=== PATIENT | male | born 1940 | race Caucasian/White ===

== ENCOUNTER 2021-08-13 12:00 | Inpatient (IN) | payer MEDICARE ==
[2021-08-09 11:37] LABS: BASOPHILS % (AUTO) 0.9 % (0.0-5.0); EOSINOPHILS % (AUTO) 3.7 % (0.0-8.0); HEMATOCRIT 35.9 % (42-54); MEAN CORPUSCULAR HEMOGLOBIN 30.4 pg (27.0-33.0); MEAN CORPUSCULAR HGB CONC 33.1 g/dL (32.0-36.0); MEAN CORPUSCULAR VOLUME 91.6 fL (79-99); MONOCYTES % (AUTO) 6.4 % (3.0-13.0); NEUTROPHILS % (AUTO) 70.3 % (40.0-77.0); PLATELET COUNT (AUTO) 253 K/uL (130-400); RED BLOOD CELL COUNT(AUTO) 3.92 MIL/uL (4.50-6.20); RED CELL DISTRIBUTION WIDTH 13.4 % (11.0-15.5); WHITE BLOOD COUNT (AUTO) 9.2 K/uL (4.8-10.8)
[2021-08-09 11:39] LABS: APPEARANCE,URINE Clear (CLEAR); BILIRUBIN,URINE Negative (NEGATIVE); COLOR,URINE Yellow (YELLOW); GLUCOSE, URINE (UA) Negative (NEGATIVE); KETONES,URINE Negative (NEGATIVE); LEUKOCYTE ESTERASE ,URINE Moderate (NEGATIVE); NITRATE,URINE Negative (NEGATIVE); OCCULT BLOOD,URINE Moderate (NEGATIVE); PROTEIN,URINE Trace mg/dL (NEGATIVE); UROBILINOGEN,URINE 0.2 mg/dL (0.2-1.0)
[2021-08-09 11:49] LABS: POTASSIUM 4.6 mmol/L (3.5-5.1)
[2021-08-09 11:49] LABS: BACTERIA,URINE Rare /HPF (None Seen); RBC,URINE 0-1 /HPF (0-1); SQUAMOUS EPITHELIAL CELL,UR Rare /HPF (0-2)
[2021-08-09 11:53] LABS: INR 1.07 (0.85-1.15); PROTHROMBIN TIME 11.6 SEC (9.6-11.6)
[2021-08-09 11:55] LABS: PARTIAL THROMBOPLASTIN TIME 28.1 SEC (26.3-35.5)
[2021-08-12 14:20] VITALS: BP 174/67
[2021-08-13] VITALS (28 sets, daily range): BP systolic 89–163; BP diastolic 39–68
[~2021-08-13] VITALS: Ht 182.9 cm; Wt 100.1 kg
[2021-08-13] MEDS: LACTATED RINGERS 1000ML 1,000 ML IV SCH ×4 (06:00→16:33)
[~2021-08-13 12:00] MED LIST: DOCU-280 PO; FINA5TAB41 PO; FOCUS FACTOR PO; SIMV-46 PO; TAMS-1 PO
[2021-08-13] MEDS: CEFAZOLIN SODIUM 1 GM VIAL IVP SCH ×2 (12:50→13:50)
[2021-08-13] MEDS ORDERED: PROPOFOL 10 MG/ML 20ML VIAL IV ONE (13:35)
[2021-08-13] MEDS ORDERED: SUCCINYLCHOLINE 200MG/10ML SYR ONE (13:35)
[2021-08-13] MEDS ORDERED: LIDOCAINE PF 100MG/5ML (2%) SYRINGE 5ML ONE (13:36)
[2021-08-13] MEDS ORDERED: GLYCOPYRROLATE 1 MG/5 ML SYRINGE ONE (13:53)
[2021-08-13] MEDS ORDERED: NEOSTIGMINE 5MG/5ML SYR IV ONE (13:53)
[2021-08-13] MEDS ORDERED: EPHEDRINE SULFATE 50 MG/ML AMPULE ONE (13:55)
[2021-08-13] MEDS ORDERED: ROCURONIUM 10MG/1ML SYR 10 MG/ML ML ONE (13:56)
[2021-08-13] MEDS ORDERED: ZOSYN 3.375GM+NS 50ML 50 ML ONE (14:12)
[2021-08-13] MEDS ORDERED: FENTANYL CITRATE PF 50 MCG/1 ML 2ML VIAL ONE (14:15)
[2021-08-13] MEDS ORDERED: ALBUMIN (HUMAN) 5% 250 ML IV ONE (15:26)
[2021-08-13] MEDS ORDERED: AMINOCAPROIC ACID 5,000MG VIAL ONE ×3 (15:29→16:00)
[2021-08-13 15:51] LABS: HEMATOCRIT 31.1 % (42-54)
[2021-08-13 17:17] LABS: BASOPHILS % (AUTO) 0.1 % (0.0-5.0); EOSINOPHILS % (AUTO) 2.1 % (0.0-8.0); HEMATOCRIT 33.4 % (42-54); LYMPHOCYTES % (AUTO) 15.4 % (21.0-51.0); MEAN CORPUSCULAR HEMOGLOBIN 30.3 pg (27.0-33.0); MEAN CORPUSCULAR HGB CONC 32.9 g/dL (32.0-36.0); MONOCYTES % (AUTO) 1.8 % (3.0-13.0); PLATELET COUNT (AUTO) 218 K/uL (130-400); RED BLOOD CELL COUNT(AUTO) 3.63 MIL/uL (4.50-6.20); RED CELL DISTRIBUTION WIDTH 13.3 % (11.0-15.5); WHITE BLOOD COUNT (AUTO) 10.7 K/uL (4.8-10.8)
[2021-08-13 17:25] LABS: CREATININE 0.9 mg/dL (0.5-1.5); POTASSIUM 4.4 mmol/L (3.5-5.1)
[2021-08-13] MEDS ORDERED: FUROSEMIDE 40MG VIAL ONE (17:40)
[2021-08-13] MEDS ORDERED: ONDANSETRON 4MG INJ ONE (19:10)
[2021-08-13 22:15] LABS: HEMATOCRIT 32.8 % (42-54)
[2021-08-13] MEDS ORDERED: 0.9% NACL 500ML IV.SOLN 500 ML IV STA (22:40)
[2021-08-13] MEDS ORDERED: GUAIFENESIN-DM 200/20 MG 10 ML PO PRN (23:00)
[2021-08-13] MEDS ORDERED: NITROGLYCERIN 0.4 MG SL TAB SL PRN (23:00)
[2021-08-13] MEDS ORDERED: MAG/ALUM/SIMETH 30 ML UDCUP PO PRN (23:00)
[2021-08-13] MEDS ORDERED: ZOLPIDEM TARTRATE 5 MG TAB PO PRN (23:00)
[2021-08-13] MEDS ORDERED: ACETAMINOPHEN 325 MG TAB PO PRN ×2 (23:00)
[2021-08-13] MEDS ORDERED: ONDANSETRON 4MG INJ IV PRN (23:00)
[2021-08-13] MEDS ORDERED: HYDROCODONE/ACETAMINOPHEN 5/325 MG TAB PO PRN (23:00)
[2021-08-13] MEDS ORDERED: LACTULOSE 20 GM/30 ML UDCUP PO PRN (23:00)
[2021-08-13] MEDS: 0.9%NACL 1000ML 1,000 ML IV SCH (23:24)
[2021-08-13] MEDS ORDERED: MIDODRINE HCL 5 MG TABLET ONE (23:28)
[2021-08-13] MEDS ORDERED: POTASSIUM CHLORIDE 20MEQ/100ML 100 ML IV PRN (23:30)
[2021-08-13] MEDS ORDERED: DEXTROSE 50%-WATER 50 ML DISP.SYRIN IV PRN (23:30)
[2021-08-13] MEDS ORDERED: GLUCAGON 1MG KIT 1 MG ML IM PRN (23:30)
[2021-08-13] MEDS: CEFTRIAXONE 1G VIAL IVP SCH (23:40)
[2021-08-14] VITALS (25 sets, daily range): BP systolic 91–129; BP diastolic 40–62
[2021-08-14] MEDS ORDERED: 0.9%NACL 1000ML 1,000 ML IV ONE
[2021-08-14] MEDS ORDERED: LABETALOL 20MG SYG IV PRN (01:00)
[2021-08-14] MEDS ORDERED: ZOSYN 3.375GM+NS 50ML 50 ML ONE (03:20)
[2021-08-14] MEDS ORDERED: 0.9%NACL 50ML 50 ML IV ONE ×2 (03:20→20:05)
[2021-08-14] MEDS ORDERED: ACETAMINOPHEN WITH CODEINE 1 TAB TAB PO PRN ×2 (03:30)
[2021-08-14] MEDS ORDERED: ZOSYN 3.375GM+NS 50ML 50 ML IV SCH (03:30)
[2021-08-14] MEDS ORDERED: MEPERIDINE-PF 75 MG/ML SYG IVP PRN (03:30)
[2021-08-14 03:38] LABS: BASOPHILS % (AUTO) 0.1 % (0.0-5.0); EOSINOPHILS % (AUTO) 1.1 % (0.0-8.0); HEMATOCRIT 29.5 % (42-54); LYMPHOCYTES % (AUTO) 1.2 % (21.0-51.0); MEAN CORPUSCULAR HEMOGLOBIN 30.4 pg (27.0-33.0); MEAN CORPUSCULAR HGB CONC 34.6 g/dL (32.0-36.0); MEAN CORPUSCULAR VOLUME 87.8 fL (79-99); MONOCYTES % (AUTO) 3.3 % (3.0-13.0); NEUTROPHILS % (AUTO) 93.8 % (40.0-77.0); PLATELET COUNT (AUTO) 170 K/uL (130-400); RED BLOOD CELL COUNT(AUTO) 3.36 MIL/uL (4.50-6.20); RED CELL DISTRIBUTION WIDTH 13.5 % (11.0-15.5); WHITE BLOOD COUNT (AUTO) 14.9 K/uL (4.8-10.8)
[2021-08-14 03:47] LABS: HEMOGLOBIN A1C 5.5 % (4.0-6.0)
[2021-08-14 03:58] LABS: B-TYPE NATRIURETIC PEPTIDE 119 pg/mL (0-100)
[2021-08-14 04:16] LABS: ALANINE AMINOTRANSFERASE 15 U/L (12-78); ALBUMIN 2.9 g/dL (3.5-5.0); ASPARTATE AMINOTRANSFERASE 15 U/L (10-37); BILIRUBIN,TOTAL 0.7 mg/dL (0.2-1.0); CARBON DIOXIDE 26 mmol/L (21-32); CHLORIDE 99 mmol/L (101-111); CREATININE 1.1 mg/dL (0.5-1.5); GLOMERULAR FILTR. RATE CALC 68 mL/min (>60); GLUCOSE,RANDOM 125 mg/dL (70-105); POTASSIUM 3.8 mmol/L (3.5-5.1); SODIUM SERUM 132 mmol/L (136-145); THYROID STIMULATING HORMONE 0.75 uIU/mL (0.36-3.74); TOTAL PROTEIN, SERUM 5.6 g/dL (6.0-8.3); UREA NITROGEN, BLOOD 21 mg/dL (7-18)
[2021-08-14 04:24] LABS: LIPASE < 50 U/L (114-286)
[2021-08-14] MEDS: INSULIN HUMULIN R 100 UNIT/ML 3ML SQ SCH ×4 (05:31→20:52)
[2021-08-14] MEDS ORDERED: ALBUMIN (HUMAN) 25% 50 ML IV SCH (07:00)
[2021-08-14] MEDS: AMINOCAPROIC ACID IV SCH ×2 (08:44→23:22)
[2021-08-14] MEDS: OXYBUTYNIN 5 MG TAB.SR.24H PO SCH (08:44)
[2021-08-14] MEDS: [UNRECOGNIZED DRUG - OTHER] IV SCH ×2 (08:44→23:22)
[2021-08-14] MEDS: AMINOCAPROIC ACID 500MG TAB PO SCH ×3 (08:44→20:44)
[2021-08-14] MEDS: TAMSULOSIN HCL 0.4 MG CAP.ER.24H PO SCH ×2 (08:46→20:44)
[2021-08-14] MEDS: 0.9%NACL 1000ML 1,000 ML IV SCH ×2 (09:30→20:44)
[2021-08-14] MEDS: ZOSYN 3.375GM+NS 50ML 50 ML IV SCH ×2 (12:26→20:44)
[2021-08-14] MEDS ORDERED: FUROSEMIDE 40MG VIAL IV ONE (19:55)
[2021-08-14] MEDS: SIMVASTATIN 20 MG TABLET PO SCH (20:44)
[2021-08-14] MEDS: DOCUSATE SODIUM 100 MG CAP PO SCH (20:44)
[2021-08-14] MEDS ORDERED: MIDODRINE HCL 5 MG TABLET PO ONE (23:30)
[2021-08-15] VITALS (7 sets, daily range): BP systolic 113–148; BP diastolic 59–72
[2021-08-15] MEDS: CEFTRIAXONE 1G VIAL IVP SCH ×2 (00:12→23:40)
[2021-08-15] MEDS: 0.9%NACL 1000ML 1,000 ML IV SCH ×2 (00:42→18:48)
[2021-08-15] MEDS: ZOSYN 3.375GM+NS 50ML 50 ML IV SCH ×2 (03:50→12:26)
[2021-08-15 04:54] LABS: HEMATOCRIT 34.1 % (42-54); MEAN CORPUSCULAR HEMOGLOBIN 29.3 pg (27.0-33.0); MEAN CORPUSCULAR HGB CONC 33.7 g/dL (32.0-36.0); MEAN CORPUSCULAR VOLUME 86.8 fL (79-99); PLATELET COUNT (AUTO) 169 K/uL (130-400); RED BLOOD CELL COUNT(AUTO) 3.93 MIL/uL (4.50-6.20); RED CELL DISTRIBUTION WIDTH 13.9 % (11.0-15.5); WHITE BLOOD COUNT (AUTO) 15.8 K/uL (4.8-10.8)
[2021-08-15 05:08] LABS: ALBUMIN 2.8 g/dL (3.5-5.0); BILIRUBIN,TOTAL 0.7 mg/dL (0.2-1.0); TOTAL PROTEIN, SERUM 5.9 g/dL (6.0-8.3)
[2021-08-15] MEDS: POTASSIUM CHLORIDE 10% ELIXIR 20 MEQ/15 ML UDCUP PO PRN ×2 (05:21→23:40)
[2021-08-15] MEDS: INSULIN HUMULIN R 100 UNIT/ML 3ML SQ SCH ×4 (05:58→21:00)
[2021-08-15 06:04] LABS: BAND NEUTROPHILS % (MANUAL) 9 % (0-2); EOSINOPHILS % (MANUAL) 9 % (1-6); LYMPHOCYTES % (MANUAL) 1 % (22-44); MONOCYTES % (MANUAL) 3 % (2-9); REACTIVE LYMPHOCYTES 1 % (0-0); SEGMENTED NEUTROPHILS % 77 % (40-70)
[2021-08-15 06:05] LABS: MAN.DIFF COMMENT-IMPRESSION MANUAL DIFFERENTIAL; PLATELET MORPHOLOGY COMMENT ADEQUATE
[2021-08-15] MEDS: AMINOCAPROIC ACID 500MG TAB PO SCH ×3 (09:40→21:18)
[2021-08-15] MEDS: OXYBUTYNIN 5 MG TAB.SR.24H PO SCH (09:40)
[2021-08-15] MEDS: TAMSULOSIN HCL 0.4 MG CAP.ER.24H PO SCH ×2 (09:40→21:18)
[2021-08-15] MEDS: METOPROLOL TARTRATE 25 MG TAB PO SCH ×2 (09:41→21:20)
[2021-08-15] MEDS: KCL 20 MEQ ERTAB PO PRN (12:26)
[2021-08-15] MEDS: MEROPENEM 1 GM VIAL IVP SCH (18:48)
[2021-08-15] MEDS: DOCUSATE SODIUM 100 MG CAP PO SCH (21:00)
[2021-08-15] MEDS: SIMVASTATIN 20 MG TABLET PO SCH (21:19)
[2021-08-15] MEDS ORDERED: MAGNESIUM 2GM PREMIX 50ML 50 ML IV PRN (23:30)
[2021-08-15 23:47] LABS: MAGNESIUM 2.1 mg/dL (1.80-2.40); POTASSIUM 3.4 mmol/L (3.5-5.1)
[2021-08-16] MEDS: MEROPENEM 1 GM VIAL IVP SCH ×3 (01:56→18:02)
[2021-08-16] MEDS: KCL 20 MEQ ERTAB PO PRN (01:56)
[2021-08-16 03:49] VITALS: BP 136/66
[2021-08-16 04:40] LABS: HEMATOCRIT 34.2 % (42-54); MEAN CORPUSCULAR HEMOGLOBIN 29.7 pg (27.0-33.0); MEAN CORPUSCULAR HGB CONC 33.9 g/dL (32.0-36.0); MEAN CORPUSCULAR VOLUME 87.5 fL (79-99); RED BLOOD CELL COUNT(AUTO) 3.91 MIL/uL (4.50-6.20); RED CELL DISTRIBUTION WIDTH 13.9 % (11.0-15.5); WHITE BLOOD COUNT (AUTO) 12.5 K/uL (4.8-10.8)
[2021-08-16 05:18] LABS: CREATININE 0.9 mg/dL (0.5-1.5); POTASSIUM 3.8 mmol/L (3.5-5.1)
[2021-08-16] MEDS: INSULIN HUMULIN R 100 UNIT/ML 3ML SQ SCH ×4 (05:48→21:00)
[2021-08-16 08:00] VITALS: BP 151/78
[2021-08-16] MEDS: TAMSULOSIN HCL 0.4 MG CAP.ER.24H PO SCH ×2 (08:46→20:22)
[2021-08-16] MEDS: OXYBUTYNIN 5 MG TAB.SR.24H PO SCH (08:46)
[2021-08-16] MEDS: METOPROLOL TARTRATE 25 MG TAB PO SCH ×2 (08:46→20:22)
[2021-08-16] MEDS: AMINOCAPROIC ACID 500MG TAB PO SCH ×3 (09:08→20:21)
[2021-08-16 11:29] VITALS: BP 137/69
[2021-08-16] MEDS: 0.9%NACL 1000ML 1,000 ML IV SCH (15:46)
[2021-08-16 16:00] VITALS: BP 127/53
[2021-08-16 20:00] VITALS: BP 138/69
[2021-08-16] MEDS: SIMVASTATIN 20 MG TABLET PO SCH (20:21)
[2021-08-16] MEDS: DOCUSATE SODIUM 100 MG CAP PO SCH (20:28)
[2021-08-16] MEDS: CEFTRIAXONE 1G VIAL IVP SCH (23:16)
[2021-08-17] VITALS: BP 121/67
[2021-08-17] MEDS: MEROPENEM 1 GM VIAL IVP SCH ×2 (01:52→09:35)
[2021-08-17 03:35] VITALS: BP 149/71
[2021-08-17] MEDS: INSULIN HUMULIN R 100 UNIT/ML 3ML SQ SCH ×2 (05:44→11:30)
[2021-08-17 06:09] LABS: HEMATOCRIT 34.4 % (42-54); MEAN CORPUSCULAR HEMOGLOBIN 29.7 pg (27.0-33.0); MEAN CORPUSCULAR VOLUME 87.3 fL (79-99); PLATELET COUNT (AUTO) 169 K/uL (130-400); RED BLOOD CELL COUNT(AUTO) 3.94 MIL/uL (4.50-6.20); RED CELL DISTRIBUTION WIDTH 13.8 % (11.0-15.5); WHITE BLOOD COUNT (AUTO) 11.2 K/uL (4.8-10.8)
[2021-08-17 06:25] LABS: CREATININE 0.7 mg/dL (0.5-1.5); POTASSIUM 3.6 mmol/L (3.5-5.1)
[2021-08-17] MEDS: KCL 20 MEQ ERTAB PO PRN (06:39)
[2021-08-17 07:24] LABS: EOSINOPHILS % (MANUAL) 16 % (1-6); LYMPHOCYTES % (MANUAL) 23 % (22-44); MAN.DIFF COMMENT-IMPRESSION MANUAL DIFFERENTIAL; MONOCYTES % (MANUAL) 4 % (2-9); PLATELET MORPHOLOGY COMMENT ADEQUATE; REACTIVE LYMPHOCYTES 1 % (0-0); SEGMENTED NEUTROPHILS % 56 % (40-70)
[2021-08-17 07:54] VITALS: BP 153/63
[2021-08-17] MEDS ORDERED: METOPROLOL SUCCINATE 50 MG TAB.SR.24H PO SCH (09:00)
[2021-08-17] MEDS: TAMSULOSIN HCL 0.4 MG CAP.ER.24H PO SCH (09:34)
[2021-08-17] MEDS: AMINOCAPROIC ACID 500MG TAB PO SCH ×2 (09:34→15:07)
[2021-08-17] MEDS: OXYBUTYNIN 5 MG TAB.SR.24H PO SCH (09:35)
[2021-08-17 12:00] VITALS: BP 131/61
[2021-08-17] MEDS: 0.9%NACL 1000ML 1,000 ML IV SCH (12:30)
== END 2021-08-17 16:00 | disposition home or self-care (01) | DRG 713 ==
LOC: DAH 12:00 → INTOOBSV 12:01 → OBSVTOIN 12:01 → DAHIP 12:01 → DAH 12:01 → 4BH 17:43 → 2DH 19:34 → 3BH 08-14 23:44
PROVIDERS: ADMIT Urology; ATTEND Urology
PROC: 30233N1 Transfusion of Nonautologous Red Blood Cells into Peripheral Vein, Percutaneous Approach (ICD-10-PCS; 2021-08-13)
PROC: 0VB08ZZ Excision of Prostate, Via Natural or Artificial Opening Endoscopic (ICD-10-PCS; principal; 2021-08-13 14:09)
DX: N40.1 Benign prostatic hyperplasia with lower urinary tract symptoms (principal); N39.0 Urinary tract infection, site not specified; E87.1 Hypo-osmolality and hyponatremia; I47.1 Supraventricular tachycardia; D62 Acute posthemorrhagic anemia; R33.8 Other retention of urine; Z20.822 Contact with and (suspected) exposure to COVID-19; I10 Essential (primary) hypertension; E11.9 Type 2 diabetes mellitus without complications; R31.0 Gross hematuria; I25.10 Atherosclerotic heart disease of native coronary artery without angina pectoris; Z96.651 Presence of right artificial knee joint; Z95.1 Presence of aortocoronary bypass graft; Z95.3 Presence of xenogenic heart valve; Z85.038 Personal history of other malignant neoplasm of large intestine; Z82.49 Family history of ischemic heart disease and other diseases of the circulatory system; I95.89 Other hypotension
CPT/HCPCS: 36415; 71046; 80048; 80053; 81001; 82948; 83036; 83690; 83735; 83880; 84100; 84132; 84145; 84295; 84443; 84484; 85014; 85018; 85025; 85027; 85610; 85730; 86850; 86900; 86901; 86922; 87088; 87635; 88305; 88312; 88341; 88342; 93005; 97039; A4344; A4346; C9803; G0378; J0330; J0690; J0696; J1940; J2001; J2185; J2405; J2543; J2704; J2710; J3010; J3480; J3490; J7030; J7120; P9016; P9045